=== PATIENT | female | born 2000 | race Caucasian/White ===

== ENCOUNTER 2024-04-19 09:06 | Emergency (ER) | payer BC, SELFPAY ==
[2024-04-19 09:32] VITALS: BP 133/90; PULSE 108; RESP 20; TEMP 36.3; O2SAT 100
--- NOTE | 2024-04-19 09:42 | ED.URI ---
HPI - URI/Sore Throat General Chief Complaint: Upper Respiratory Infection Stated Complaint: Sore throat Time Seen by Provider: 04/19/24 09:42 Source: patient and RN notes reviewed Mode of arrival: ambulatory Limitations: no limitations History of Present Illness HPI Narrative: 23 year old female presents with concern for sore throat , fever, body aches, blisters in her mouth, swollen gland for 3 days. She denies cough and SOB. She reports negative home COVID test MD elicited complaint: sore throat Related Data Allergies Allergy/AdvReac Type Severity Reaction Status Date / Time No Known Allergies Allergy Unverified 04/13/20 13:28 Review of Systems Review of Systems: CONSTITUTIONAL: Reports malaise, chills, sweats, fever. EYES: Denies visual changes, redness, or discharge. ENT: Denies rhinorrhea, congestion, sinus pain, otalgia. Reports sores in her mouth and sore throat. CARDIOVASCULAR: Denies chest pain, palpitations, or edema. RESPIRATORY: Denies cough. Denies dyspnea. GASTROINTESTINAL: Denies abdominal pain, nausea, vomiting, diarrhea SKIN: Denies rash or itching. MUSCULOSKELETAL: Reports myalgia. NEUROLOGIC: Denies headache. All systems reviewed & are unremarkable except as noted in HPI and below PMFSH Social History Social History Smoking status: Never smoker Alcohol intake: never Comments At time of signature, agree with nursing past medical, surgical, social and family history. There is no relevant family history pertinent to the presenting complaint Exam Narrative: GENERAL: Well-appearing, well-nourished, and in no acute distress. HEAD: Normocephalic EYES: PERRLA, conjunctivae clear ENT: Nares clear. Mucous membranes moist. TM pearly rubin with sharp light reflex bilaterally; no tragal tenderness. Oropharynx erythematous with to mucosal lesions. Tonsils not enlarged and without exudate, no drooling, no hoarseness, no trismus, uvula midline. NECK: Supple. No lymphadenopathy CHEST: Clear to auscultation, breath sounds equal. No wheezing, rhonchi, rales, or stridor. No respiratory distress, speaks in full sentences. HEART: Regular rate and rhythm. No murmur heard. SKIN: Warm, dry, no rash. Two scabs noted around the lips, 1 scab and on the lips NEURO: Alert and oriented x3. PSYCH: Normal mood and affect Course Course Emergency Course: Patient is aware of diagnosis, understands and agrees to treatment plan. Anticipatory guidance given. Patient agrees to follow-up as directed and is aware of reasons to seek care at the emergency department. Portions of this record may have been created with voice recognition software Level of Care: Express Care Visit Vital Signs Vital signs: Vital Signs Temperature 97.4 F L 04/19/24 09:32 Pulse Rate 108 H 04/19/24 09:32 Respiratory Rate 20 04/19/24 09:32 Blood Pressure 133/90 04/19/24 09:32 Pulse Oximetry 100 04/19/24 09:32 Oxygen Delivery Room Air 04/19/24 09:32 Temperature 97.4 F L 04/19/24 09:32 Pulse Rate 108 H 04/19/24 09:32 Respiratory Rate 20 04/19/24 09:32 Blood Pressure 133/90 04/19/24 09:32 Pulse Oximetry 100 04/19/24 09:32 Oxygen Delivery Room Air 04/19/24 09:32 Reviewed. MDM - URI/Sore Throat MDM Narrative Medical decision making narrative: Differential diagnosis considered: Charles virus, strep pharyngitis, allergic rhinitis, upper respiratory tract infection, sinusitis, rhinosinusitis, nasopharyngitis. viral pharyngitis, otitis media, otitis externa, pneumonia, bronchitis, viral cough syndrome, viral syndrome, and influenza. Exam findings show no acute concerns or changes; patient is non-toxic appearing and is in no distress. Patient is appropriate for outpatient treatment and follow-up. Lab Data Attestation: I reviewed the patient's lab results. Critical Care Time Critical Care Time Critical Care Time: No Discharge Plan Discharge Cli
[2024-04-19 10:12] LABS: EDSTREPNEGPOS1 Negative
== END 2024-04-19 10:17 | disposition home or self-care (01) ==
PROVIDERS: Emergency Provider Nurse Practitioner
DX: J02.9 Acute pharyngitis, unspecified (principal)
CPT/HCPCS: 87081; 87880; 99213; G0463